=== PATIENT | male | born 1975 | race Two or more races ===

== ENCOUNTER 2024-09-28 18:33 | Emergency (ER) | payer MEDICAID, SELFPAY ==
[2024-09-28 18:36] VITALS: BMI 31.1
[2024-09-28 19:19] VITALS: BP 175/93; PULSE 81; RESP 17; TEMP 36.9; O2SAT 96
--- NOTE | 2024-09-28 19:20 | EKG_ITS ---
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
--- NOTE | 2024-09-28 19:20 | PD.EDRME ---
Rapid Medical Screening Exam RME Arrival date/time: 09/28/24 18:33 49 yo m present to Ed for c/o of dizziness, headache for 3 days I have greeted and performed a focused initial assessment of this patient. A comprehensive ED assessment and evaluation of the patient, analysis of all test results, and completion of the medical decision making process will be conducted by additional ED providers. Chief Complaint: Headache Time Seen by Provider: 09/28/24 19:13
[2024-09-28 20:13] LABS: Basophils # (Auto) 0.1 Thou/mm3 (0.0-0.2); Basophils % (Auto) 1 % (0-2.5); Eosinophils # (Auto) 0.1 Thou/mm3 (0.0-0.5); Eosinophils % (Auto) 1 % (0-10); Hematocrit 40.7 % (41.0-53.0); Hemoglobin 14.7 g/dL (13.5-16.0); Immature Granulocytes % (Auto) 0 % (0-0); Immature Granulocytes Auto 0.04 Thou/mm3 (0.00-0.00); Lymphocytes # (Auto) 2.9 Thou/mm3 (1.0-4.8); Lymphocytes % (Auto) 24 % (10-50); Mean Corpuscular HGB Conc 36.1 g/dl (31.0-37.0); Mean Corpuscular Volume 89 fL (80-100); Monocytes # (Auto) 1.3 Thou/mm3 (0.0-0.8); Monocytes % (Auto) 10 % (0-12); Neutrophils % (Auto) 65 % (37-80); Nucleated Red Blood Cell % 0 /100 WBC (0); Platelet Count 284 Thou/mm3 (140-440); RDW Standard Deviation 39.8 fL (35.1-43.9); White Blood Count 12.4 Thou/mm3 (3.8-10.6)
[2024-09-28 20:38] LABS: Amphetamine/Methamp Scrn,U Negative (Negative); Barbiturate Screen,Urine Negative (Negative); Benzodiazepines Screen,Urine Negative (Negative); Benzoylecgonine Screen, Ur Negative (Negative); Fentanyl Screen,Urine Negative (Negative); Opiate Screen,Urine Negative (Negative); THC Screen,Urine Negative (Negative)
[2024-09-28 20:56] LABS: Alanine Aminotransferase 45 U/L (10-49); Albumin, Serum 4.7 gm/dL (3.5-5.0); Albumin/Globulin Ratio 1.7 (1.2-2.2); Alcohol, Blood Medical < 3.0 mg/dL (0-10.0); Alkaline Phosphatase 101 U/L (46-116); Aspartate Amino Transferase 53 U/L (0-34); BUN/Creatinine Ratio 7 Ratio (12-20); Blood Urea Nitrogen 5 mg/dL (9-23); Calcium 9.5 mg/dL (8.3-10.6); Calcium (Corrected) 9.5 mg/dL (8.5-10.1); Carbon Dioxide 29.5 mMol/L (20.0-31.0); Creatinine (Component) 0.7 mg/dL (0.6-1.3); Estimated Creatinine Clearance 149.5 mL/min (>60); Globulin 2.8 gm/dL (2.3-3.5); Glucose 119 mg/dL (74-106); Lipase 27 U/L (12-53); Magnesium 2.3 mg/dL (1.6-2.6); Total Protein 7.5 gm/dL (5.7-8.2); Troponin I < 0.020 ng/mL (0.0-0.045); eGFR > 60 See Note
[2024-09-28 21:05] LABS: Anion Gap 9 (7-16); Chloride 96 mMol/L (98-107); Osmolality,Calculated 266 (275-295); Potassium 3.1 mMol/L (3.4-5.1); Sodium 134 mMol/L (136-145)
[2024-09-28] MEDS: SODIUM CHLORIDE 0.9% 1000 ML 1,000 ML 999 ML IV (21:25)
[2024-09-28] MEDS: ACETAMINOPHEN 500 MG TABLET 1000 MG PO (21:25)
[2024-09-28] MEDS: LORazepam 0.5 MG TABLET 1 MG PO (21:26)
[2024-09-28] MEDS: ONDANSETRON ODT 4 MG TABRAP PO (21:26)
[2024-09-28] MEDS: POTASSIUM CHLORIDE 20 mEq TABCR 40 MEQ PO (22:32)
--- NOTE | 2024-09-28 23:35 | EDNOTE_ITS ---
ED Headache RME/HPI General Chief Complaint: Headache Stated Complaint: HEADACHE AND DIZZINESS FOR 3 DAYS Time Seen by Provider: 09/28/24 19:13 Arrival date/time: 09/28/24 18:33 49 year old male present to emergency room with c/o of headache and dizziness for 3 days. pt report stop drinking alcohol 3 days ago. pt denies any si, hallucination or homicidal thoughts. LOCATION: generalized and diffuse headache SEVERITY: Symptoms are described as being severe with limitations on activities of daily living QUALITY: Symptoms are described as being dull or achy CONTEXT: The patient is unable to identify any inciting events. DURATION/TIMING: The symptoms started approximately 3 day ago and have been constant since then and have been progressive getting worse. ASSOCIATED SYMPTOMS: The patient is unable to identify any other associated symptoms. MODIFYING FACTORS: The patient is unable to identify any alleviating or aggravating symptoms. PERTINENT ROS: Headache is gradual in onset, not maximal intensity at onset, not associated with syncope or presyncope, not the first or the worst, not associated with head trauma or anticoagulant use, no associated focal neurological deficits, denies associated neck pain, no recent fevers, no unexplained rashes, no recent foreign travel, immunized, no unexplained nausea or vomiting. REVIEW OF SYSTEMS: See History of Present Illness - with the exception of those mentioned in the history of present illness, all other systems reviewed and reported as negative GENERAL: In general the patient is awake, interactive, in an emergency department gurney. HEAD/EYES/EARS/NOSE/THROAT: normo-cephalic, atraumatic, mucus membranes are moist, anicteric, palpebral conjunctiva is pink, trachea is midline. CARDIOVASCULAR: regular rate and regular rhythm, no murmurs, heart sounds are not distant, strong pulses in all four extremities that are equal and symmetric bilateral upper and lower extremities, normal capillary refill. CHEST/PULMONARY: normal chest rise and fall, good air movement, clear to auscultation bilaterally, normal inspiratory to expiratory ratios without evidence of respiratory distress. NECK: No midline/Paraspinal tenderness, no step off ROM/Strenght intact No Kernig and bruzinski sign. No trauma ABDOMEN: soft, not tender, no masses appreciated BACK: normal range of motion without pain. NEUROLOGICAL: cranio-facial features are symmetric, moves all four extremities equally without obvious limitations or weakness. EXTREMITY: no tenderness to palpation over the long bones or large joints of the bilateral upper and lower extremities, no joint swelling, no joint erythema, no signs of trauma, no unilateral leg swelling and no peripheral edema. SKIN: warm, dry, well-perfused, no jaundice, no rash, no telangiectasias or petechia. PSYCH: calm, cooperative, no evidence of psychosis or agitation RME / HPI RME / HPI Narrative: 09/28/24 18:33 49 yo m present to Ed for c/o of dizziness, headache for 3 days I have greeted and performed a focused initial assessment of this patient. A comprehensive ED assessment and evaluation of the patient, analysis of all test results, and completion of the medical decision making process will be conducted by additional ED providers. Related Data Allergies Allergy/AdvReac Type Severity Reaction Status Date / Time No Known Allergies Allergy Verified 09/28/24 18:35 Course Course Course Narrative: Patient is admitted to the Emergency Department and evaluated. Patient appears well, is non-toxic and well hydrated. Pt. has no fever or nuchal rigidity. No signs of meningitis. HAMLIN is not sudden onset. This is not the worse HAMLIN of patient's life. No neurological deficits. I do not suspect SAH. most likely sx are withdrawal from not drinking alcohol. Quality Measures none Orders Category Date Time Status Bedside Influenza A&B Antigen Test NOW Care 09/28/24 19:20 Completed EKG (ED ONLY) *Do not use* NOW Care 09/28/24 19:20 Completed Insert IV STAT Care 09/28/24 19:27 Active EKG (ED Only) Stat Exams 09/28/24 19:20 Draft Alcohol, Blood Medical Stat Lab 09/28/24 20:04 Completed CBC Stat Lab 09/28/24 20:04 Completed CMP [Comprehensive Metabolic Panel] Stat Lab 09/28/24 20:04 Completed Drug Screen,Urine Stat Lab 09/28/24 20:24 Completed Lipase Stat Lab 09/28/24 20:04 Completed Magnesium Stat Lab 09/28/24 20:04 Completed Troponin I Stat Lab 09/28/24 20:04 Completed Acetaminophen Tab [Tylenol ES Tab] Med 09/28/24 19:20 Discontinued 1,000 mg PO X1 ONE LORazepam [Ativan] Med 09/28/24 19:27 Discontinued 1 mg PO X1 ONE Ondansetron Odt [Zofran Odt] Med 09/28/24 19:28 Discontinued 4 mg PO X1 ONE Potassium Chloride [K-Dur] Med 09/28/24 21:29 Discontinued 40 meq PO X1 ONE Sodium Chloride 0.9% 1000 ml [Ns] 1,000 ml Med 09/28/24 19:27 Discontinued IV 999 mls/hr Reevaluation(s) Reevaluation #1: pt is feeling better and would like to go. Vital Signs Vital signs: Vital Signs Temperature 98.4 F 09/28/24 19:19 Pulse Rate 81 09/28/24 19:19 Respiratory Rate 17 09/28/24 19:19 Blood Pressure 175/93 H 09/28/24 19:19 Pulse Oximetry (%) 96 09/28/24 19:19 Oxygen Delivery Method Room Air 09/28/24 19:19 Procedures -ED EKG Interpretation #1: Date of EK09/28/24 Rate: 81 Interpretation: Reviewed by me EKG Impression: Normal sinus rhythm, No acute ST-T changes, No ectopy, No ischemic changes, Normal QRS and Normal intervals Headache Patient data External records reviewed:: [facility] previous records Clinical information provided by:: patient Social determinants that could affect healthcare access:: alcohol use Patient has the following chronic illnesses:: alcohol use How is presenting disease/condition affected by chronic disease/condition?: exacerbated by Evaluation data The following diagnostics were reviewed and interpreted by me:: lab results, radiology exam(s) and EKG tracing(s) Lab and/or radiology exams considered but not ordered:: n/a Interpretation Summary: K 3.1 alcohol/drug negative cbc/cmp wnl exception for what is mention trop negative mg wnl flu negative Medications / Prescriptions Medications or Prescriptions considered but not ordered:: n/a Medication administrations:: Medication Administration History Discontinued Medications Acetaminophen (Acetaminophen 500 Mg Tablet) 1,000 mg PO X1 ONE Stop: 09/28/24 19:21 Last Admin: 09/28/24 21:25 Dose: 1,000 mg Documented By: RUDOLPH Sodium Chloride (Ns) 1,000 mls @ 999 mls/hr IV .Q1H1M ONE Stop: 09/28/24 20:27 Last Infusion: 09/28/24 22:34 Dose: Infused Documented By: Admin: 09/28/24 21:25 Dose: 999 mls/hr Documented By: RUDOLPH Lorazepam (Lorazepam 0.5 Mg Tablet) 1 mg PO X1 ONE Stop: 09/28/24 19:28 Last Admin: 09/28/24 21:26 Dose: 1 mg Documented By: EE Ondansetron HCl (Ondansetron Odt 4 Mg Tabrap) 4 mg PO X1 ONE; Protocol Stop: 09/28/24 19:29 Last Admin: 09/28/24 21:26 Dose: 4 mg Documented By: EE Potassium Chloride (Potassium Chloride 20 Meq Tabcr) 40 meq PO X1 ONE Stop: 09/28/24 21:30 Last Admin: 09/28/24 22:32 Dose: 40 meq Documented By: KF as stated above Consultations Consultation(s) initiated? (list below): No Diagnosis Differential diagnosis headache: migraine, tension headache, headache and other (alcohol withdrawal, dehydration, electrolyte imbalance ) Most likely diagnosis given after review of the tests above:: headache, alcohol withdrawal Admission Indicated Admission indicated?: not indicated Explain why admission is indicated or not indicated:: n/a Admission Request Was there a request for admission?: No Disposition Plan Disposition Plan: Discharge Discharge Attestation Discharge Attestation: The patient and all family members were given an opportunity to ask questions and understood the discharge instructions. Discharge instructions specifically effects, indications for sooner follow up or return to the emergency department, and the expected course of current diagnosis. Patient condition: Stable Discharge Plan Plan Patient Disposition: HOME (Self Care) Health Concerns: Follow with PMD as directed Take tylenol or motrin as need Return to ED if sx worsen Prescriptions/Referrals Referrals: No Primary/Family,Physician [Primary Care Provider] - In 1 week Problem List Clinical Impression: Headache, Hypokalemia, Alcohol withdrawal Patient/Caregiver Discharge Instructions Education Materials: Self-Care for Headaches Print Language: Argentine Stand Alone Forms: [employer] Award Info., Patient Portal Info Letter
== END 2024-09-28 23:39 | disposition home or self-care (01) ==
PROVIDERS: Physician Assistant; Emergency Provider Emergency Medicine
DX: R51.9 Headache, unspecified (principal); E87.6 Hypokalemia; F10.939 Alcohol use, unspecified with withdrawal, unspecified
CPT/HCPCS: 36415; 80053; 80307; 80320; 83690; 83735; 84484; 85025; 87400; 93005; 96360; 99284; J7030; Q0162; A9270; G0480

== ENCOUNTER 2024-10-04 22:06 | Emergency (ER) | payer MEDICAID, SELFPAY ==
[2024-10-04 22:06] VITALS: BMI 27.1
[2024-10-04 22:19] VITALS: BP 158/108; BP 170/100; PULSE 77; RESP 20; TEMP 37.4; O2SAT 95
--- NOTE | 2024-10-04 22:21 | EKG_ITS ---
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
--- NOTE | 2024-10-04 22:42 | XR_ITS ---
Examination: CT brain head without contrast. 2-D sagittal coronal reconstructions Date and time of exam:October 07, 2024 1105 hrs. Indications: Altered mental status confusion beginning one week ago CTDI: vol (mGy):54.5 DLP: (mGycm):1123 Technique: Multiple CT axial sections of the brain have been obtained, 5 mm slice thickness. Contrast has not been administered. 2-D sagittal, coronal reconstructions have been obtained Low dose protocols were performed. One or more of the following dose reduction techniques were used; automated exposure control, adjustment of the mA and/or KV according to patient size, use of iterative reconstruction technique. Findings: Large area of edema in the left posterior parietal lobe Frontal horns are shifted to the right 5 mm No acute hemorrhage Cranial vault intact No cranial vault fracture Impression: Large area of edema in the posterior left parietal lobe suspicious for brain neoplasm Recommend MRI brain follow-up pre and postcontrast
--- NOTE | 2024-10-04 22:43 | PD.EDRME ---
Rapid Medical Screening Exam [facility] Arrival date/time: 10/04/24 22:06 49M with history of alcohol use presents to ED with 1 week of HAMLIN and confusion. Patient was here during initial onset here, felt better after meds, but symptoms returned. Chief Complaint: Altered Mental Status Vital signs: Vital Signs Temperature 99.4 F 10/04/24 22:19 Pulse Rate 77 10/04/24 22:19 Respiratory Rate 20 10/04/24 22:19 Blood Pressure 170/100 H 10/04/24 22:19 Pulse Oximetry (%) 95 10/04/24 22:19 Oxygen Delivery Method Room Air 10/04/24 22:19
[2024-10-04 23:03] LABS: Basophils # (Auto) 0.1 Thou/mm3 (0.0-0.2); Basophils % (Auto) 1 % (0-2.5); Eosinophils # (Auto) 0.2 Thou/mm3 (0.0-0.5); Eosinophils % (Auto) 1 % (0-10); Hemoglobin 14.1 g/dL (13.5-16.0); Immature Granulocytes % (Auto) 0 % (0-0); Immature Granulocytes Auto 0.04 Thou/mm3 (0.00-0.00); Lymphocytes # (Auto) 2.9 Thou/mm3 (1.0-4.8); Lymphocytes % (Auto) 23 % (10-50); Mean Corpuscular HGB Conc 35.3 g/dl (31.0-37.0); Mean Corpuscular Hemoglobin 32.7 pg (25.0-35.0); Mean Corpuscular Volume 93 fL (80-100); Monocytes # (Auto) 1.2 Thou/mm3 (0.0-0.8); Monocytes % (Auto) 10 % (0-12); Neutrophils # (Auto) 8.3 Thou/mm3 (1.8-7.7); Neutrophils % (Auto) 66 % (37-80); Nucleated Red Blood Cell % 0 /100 WBC (0); Platelet Count 269 Thou/mm3 (140-440); RDW Standard Deviation 42.6 fL (35.1-43.9); Red Blood Count 4.31 Miln/mm3 (4.50-5.90); White Blood Count 12.7 Thou/mm3 (3.8-10.6)
[2024-10-04 23:19] LABS: Collection Type, Urine Clean Catch
[2024-10-04 23:25] LABS: Alanine Aminotransferase 42 U/L (10-49); Albumin, Serum 4.3 gm/dL (3.5-5.0); Albumin/Globulin Ratio 1.5 (1.2-2.2); Alcohol, Blood Medical < 3.0 mg/dL (0-10.0); Alkaline Phosphatase 90 U/L (46-116); Ammonia < 10 uMol/L (11-32); Anion Gap 7 (7-16); Aspartate Amino Transferase 31 U/L (0-34); BUN/Creatinine Ratio 14 Ratio (12-20); Bilirubin,Total 0.4 mg/dL (0.3-1.2); Blood Urea Nitrogen 11 mg/dL (9-23); Calcium 9.1 mg/dL (8.3-10.6); Calcium (Corrected) 9.1 mg/dL (8.5-10.1); Carbon Dioxide 28.5 mMol/L (20.0-31.0); Chloride 102 mMol/L (98-107); Creatinine (Component) 0.8 mg/dL (0.6-1.3); Estimated Creatinine Clearance 121.3 mL/min (>60); Globulin 2.8 gm/dL (2.3-3.5); Glucose 134 mg/dL (74-106); Magnesium 2.5 mg/dL (1.6-2.6); Osmolality,Calculated 275 (275-295); Potassium 3.4 mMol/L (3.4-5.1); Sodium 137 mMol/L (136-145); Total Protein 7.1 gm/dL (5.7-8.2); eGFR > 60 See Note
[2024-10-04 23:26] LABS: Bilirubin,Urine Negative (Negative); Blood,Urine Trace (Negative); Clarity,Urine Clear (Clear/Hazy); Color,Urine Yellow (Lt Yel-Yel); Culture Indicated,Urine Not Indicated; Glucose, Urine Negative (Negative); Ketones,Urine Negative (Negative); Leukocyte Esterase,Urine Negative (Negative); Nitrite,Urine Negative (Negative); Protein,Urine Negative (Neg - Trace); RBC,Urine < 1 /hpf (0-3); Specific Gravity,Urine 1.012 (1.001-1.035); Squamous Epithelial Cell,Urine < 1 /hpf (0-5); Urobilinogen,Urine Negative mg/dL (0.0-1.0); WBC,Urine 1 /hpf (0-5)
[2024-10-05] VITALS (9 sets, daily range): BP systolic 118–171; BP diastolic 71–92; PULSE 56–80; RESP 17–20; TEMP 36.6–37.3; O2SAT 97–100
--- NOTE | 2024-10-05 00:22 | XR_ITS ---
Examination: AP chest single view Technique one AP portable upright chest single view Exam date and time: October 04, 2024, 11:29 PM Indications: Coughing today. Findings: Normal heart size. Lungs are clear. The osseous structures are intact. Impression: No active disease
--- NOTE | 2024-10-05 00:23 | PD.EDAMS ---
Altered Mental Status RME/HPI General Chief Complaint: Altered Mental Status Stated Complaint: AMS Source: family Arrival date/time: 10/04/24 22:06 Mode of arrival: ambulatory Limitations: no limitations RME / HPI RME / HPI narrative: 10/04/24 22:06 49M with history of alcohol use presents to ED with 1 week of HAMLIN and confusion. Patient was here during initial onset here, felt better after meds, but symptoms returned. Dr. Crocker?s Main ED Evaluation: Patient seen by me at 00:23. 49-year-old male alcoholic brought to the emergency department by brother with chief complaint of confusion. Patient quit drinking about a week ago. He is usually a very heavy drinker of beer. He has been having problems with relationships and apparently has been drinking more than normal. He quit about a week ago and ended up coming to the emergency department. Patient was evaluated and discharged from this emergency department. He also went to [place] per brother, and had blood drawn. Those tests are supposed to be resulted on Sunday but he felt sick and decided to come here. Brother states that the patient has a very wide-based and odd gait and he has been very confused at home. It has been 7 days since his last drink. Patient is confused but able to answer most questions. He is able to contribute some to the history. Related Data Allergies Allergy/AdvReac Type Severity Reaction Status Date / Time No Known Allergies Allergy Verified 09/28/24 18:35 Review of Systems Review of Systems ROS Unobtainable: unobtainable due to mental status Past Medical History Social History SMOKING STATUS: Never smoker ED Exam Narrative Physical exam: GENERAL APPEARANCE: alert and oriented self and he knows he is in an ER, well-developed, well-nourished, no acute distress VITALS: All vitals were reviewed and the pulse ox is % on room air, which is normal according to my interpretation. HEENT: Normocephalic, atraumatic; pupils equal, round, reactive to light; EOMI; mucous membranes pink, moist; oropharynx clear. He has bilateral horizontal nystagmus. NECK: Supple LUNGS: CTABL; no wheezes, no rales, no rhonchi HEART: Regular rate, regular rhythm; normal S1, S2; no murmurs ABDOMEN: non distended; normal BS; soft, no tenderness, no guarding, no rebound; no masses, no organomegaly, no hernia BACK: no CVA tenderness EXTREMITIES: atraumatic; no edema NEUROLOGIC: awake; alert and oriented x4; cranial nerves II-XII grossly intact; no focal sensory or motor deficits. Patient has a wide-based gait. PSYCHIATRIC: appropriate mood and affect SKIN: warm, dry, normal color; no rashes General Limitations: Present no limitations Course Course Course Narrative: CXR is ordered for determining etiology of cough. Quality Measures none Orders Category Date Time Status Bedside Blood Glucose NOW Care 10/05/24 00:19 Active Bedside COVID-19 Antigen Test NOW Care 10/05/24 00:31 Active Bedside Influenza A&B Antigen Test NOW Care 10/05/24 00:31 Completed Blood glucose [Bedside Blood Glucose] NOW Care 10/04/24 22:21 Active Environmental Planning Engineer NOW Care 10/05/24 00:19 Active Continuous Pulse Oximetry NOW Care 10/05/24 00:19 Completed EKG (ED ONLY) *Do not use* NOW Care 10/04/24 22:21 Completed Insert IV NOW Care 10/04/24 22:42 Active Insert IV NOW Care 10/05/24 00:19 Active MRI Screening NOW Care 10/05/24 01:[address] head/brain wo con Stat Exams 10/04/24 22:42 Completed EKG (ED Only) Stat Exams 10/04/24 22:21 Draft MR head/brain wo/w con Stat Exams 10/05/24 Ordered XR chest 1V portable Stat Exams 10/05/24 00:22 Taken Alcohol, Blood Medical Stat Lab 10/04/24 22:53 Completed Ammonia Stat Lab 10/04/24 22:53 Completed CBC Stat Lab 10/04/24 22:53 Completed CMP [Comprehensive Metabolic Panel] Stat Lab 10/04/24 22:53 Completed Drug Screen,Urine Stat Lab 10/04/24 23:05 Completed Magnesium Stat Lab 10/04/24 22:53 Completed Partial Thromboplastin Time Stat Lab 10/05/24 00:20 Completed Prothrombin Time with INR Stat Lab 10/05/24 00:20 Completed Thyroid Stimulating Hormone Stat Lab 10/05/24 00:20 Completed Troponin I Stat Lab 10/05/24 00:20 Completed Urinalysis, C/S if Indicated Stat Lab 10/04/24 23:05 Completed DiphenhydrAMINE INJ [Benadryl Inj] Med 10/05/24 05:14 Discontinued 12.5 mg IVP X1 ONE Folic Acid Inj Med 10/05/24 00:21 Discontinued 1 mg IVP X1 ONE Ketorolac Inj [Toradol Inj] Med 10/05/24 05:14 Discontinued 15 mg IVP X1 ONE LORazepam [Ativan Inj] Med 10/05/24 00:23 Discontinued 2 mg IVP X1 ONE Metoclopramide Inj [Reglan Inj] Med 10/05/24 05:14 Discontinued 5 mg IVP X1 ONE Sodium Chloride 0.9% 1000 ml [Ns] 1,000 ml Med 10/05/24 00:27 Discontinued IV 999 mls/hr Thiamine Inj [Vitamin B-1 Inj] Med 10/05/24 00:21 Discontinued 100 mg IVP X1 ONE Thiamine Inj [Vitamin B-1 Inj] Med 10/05/24 00:47 Discontinued 400 mg IVP X1 ONE Vital Signs Vital signs: Vital Signs Temperature 99.4 F 10/04/24 22:19 Pulse Rate 77 10/04/24 22:19 Respiratory Rate 20 10/04/24 22:19 Blood Pressure 170/100 H 10/04/24 22:19 Pulse Oximetry (%) 95 10/04/24 22:19 Oxygen Delivery Method Room Air 10/04/24 22:19 Altered Mental Status MDM Narrative MDM Narrative:: This patient has Warnicke's encephalopathy. I have ordered a workup and also Ativan, thiamine, normal saline, folic acid. Patient's get any large dose thiamine over the coming days. Will need to admit him. EKG taken on 10/04/24 at 22:33, personally interpreted by me shows normal sinus rhythm at 75. Normal axis, no ectopy. No signs of acute ischemia. CT head is being read as showing possible mass. Patient is going to be held in the ER till the morning for MRI. Case d/w Dr Grant at 00:48. He will see the pt. 0600 Care signed out to Dr. Ricardo. Past medical, surgical, social and family history reviewed. Vitals and home medications reviewed. Results and treatment plan discussed. They will assume the care of the patient at this time and will follow the patient, pending MRI and final dispo. Please refer to the emergency department record for history and examination from initial visit. The following addendum documentation note is intended to reflect any pending information, findings, or radiology results not included in the patient?s initial chart. Patient data External records reviewed:: [facility] previous records Clinical information provided by:: family Social determinants that could affect healthcare access:: none Patient has the following chronic illnesses:: see PMH How is presenting disease/condition affected by chronic disease/condition?: uneffected by Evaluation data The following diagnostics were reviewed and interpreted by me:: lab results, radiology exam(s) and EKG tracing(s) Lab and/or radiology exams considered but not ordered:: na Interpretation Summary: Examination: CT brain head without contrast. Date and time of exam:October 07, 2024 1105 hrs. Indications: Altered mental status confusion beginning one week ago Findings: Large area of edema in the left posterior parietal lobe Frontal horns are shifted to the right 5 mm No acute hemorrhage Cranial vault intact No cranial vault fracture Impression: Large area of edema in the posterior left parietal lobe suspicious for brain neoplasm Recommend MRI brain follow-up pre and postcontrast Dictated By: Jayson Acevedo MD Medications / Prescriptions Medications or Prescriptions considered but not ordered:: na Medication administrations:: Medication Administration History Discontinued Medications Diphenhydramine HCl (Diphenhydramine Inj 50 Mg/Ml Vial) 12.5 mg IVP X1 ONE Stop: 10/05/24 05:15 Last Admin: 10/05/24 05:24 Dose: 12.5 mg Documented By: GRACE Comments: [id number] Folic Acid (Folic Acid Inj 1 Mg/0.2 Ml) 1 mg IVP X1 ONE Stop: 10/05/24 00:22 Last Admin: 10/05/24 00:43 Dose: 1 mg Documented By: GRACE Sodium Chloride (Ns) 1,000 mls @ 999 mls/hr IV .Q1H1M ONE Stop: 10/05/24 01:27 Last Infusion: 10/05/24 01:38 Dose: Infused Documented By: Admin: 10/05/24 00:37 Dose: 999 mls/hr Documented By: GRACE Ketorolac Tromethamine (Ketorolac Inj 30 Mg/Ml Vial) 15 mg IVP X1 ONE Stop: 10/05/24 05:15 Last Admin: 10/05/24 05:27 Dose: 15 mg Documented By: GRACE Lorazepam (Lorazepam 2 Mg/Ml Vial) 2 mg IVP X1 ONE Stop: 10/05/24 00:24 Last Admin: 10/05/24 00:38 Dose: 2 mg Documented By: GRACE Metoclopramide HCl (Metoclopramide Inj 5 Mg/Ml Vial 2 Ml) 5 mg IVP X1 ONE; Protocol Stop: 10/05/24 05:15 Last Admin: 10/05/24 05:29 Dose: 5 mg Documented By: GRACE Thiamine HCl (Thiamine Inj 100 Mg/Ml Vial 2 Ml) 100 mg IVP X1 ONE Stop: 10/05/24 00:22 Last Admin: 10/05/24 00:41 Dose: 100 mg Documented By: GRACE Thiamine HCl (Thiamine Inj 100 Mg/Ml Vial 2 Ml) 400 mg IVP X1 ONE Stop: 10/05/24 00:48 Last Admin: 10/05/24 02:00 Dose: 400 mg Documented By: GRACE as above, if any Consultations Consultation(s) initiated? (list below): Yes Consultation #1 (Physician, Specialty, Details): see narrative Diagnosis Differential diagnosis altered mental status: altered mental status Most likely diagnosis given after review of the tests above:: pending work-up Admission Indicated Admission indicated?: indicated Admission Request Was there a request for admission?: Yes Admission Attestation Admission request attestation: Discussed case with [] from Hospitalist service regarding admission. Discussed patients ED course, exam findings, labs, and radiology results. The Hospitalist [agrees,declines] to accept the patient for admission. Disposition Plan Disposition Plan: other (specify) (signout pending MRI) Discharge Plan Prescriptions/Referrals Referrals: No Primary/Family,Physician [Primary Care Provider] - In 1 week Problem List Clinical Impression: Wernicke encephalopathy, Acute alteration in mental status Patient/Caregiver Discharge Instructions Print Language: Romansh
--- NOTE | 2024-10-05 00:25 | PC.NURSE ---
Pt brought to RM #3 via w/c. Pt confused, Dr. Crocker at bedside seeing pt. Brother at bedside. Pt seen in Ed 2 days ago with same c/o.
[2024-10-05] MEDS: SODIUM CHLORIDE 0.9% 1000 ML 1,000 ML 999 ML IV (00:37)
[2024-10-05] MEDS: LORazepam 2 MG/ML VIAL IVP (00:38)
[2024-10-05] MEDS: THIAMINE INJ 100 MG/ML VIAL 2 ML IVP (00:41)
[2024-10-05] MEDS: FOLIC ACID INJ 1 MG/0.2 ML IVP (00:43)
[2024-10-05 00:48] LABS: Thyroid Stimulating Hormone 1.63 uIU/mL (0.55-4.78); Troponin I < 0.002 ng/mL (0.0-0.045)
[2024-10-05] MEDS: THIAMINE INJ 100 MG/ML VIAL 2 ML 400 MG IVP (02:00)
[2024-10-05 02:04] LABS: Amphetamine/Methamp Scrn,U Negative (Negative); Barbiturate Screen,Urine Negative (Negative); Benzodiazepines Screen,Urine Negative (Negative); Benzoylecgonine Screen, Ur Negative (Negative); Fentanyl Screen,Urine Negative (Negative); Opiate Screen,Urine Negative (Negative); THC Screen,Urine Negative (Negative)
--- NOTE | 2024-10-05 02:15 | EVENTNT_ITS ---
<Statement entered by Ever Hall MD - 10/07/24 23:03> 49-year-old male with history of alcohol use disorder who presented to the ER with chief complaint of headache and confusion. In the ER, patient underwent CT head with findings of large area of edema in the posterior left parietal lobe suspicious for brain neoplasm causing 5 mm midline shift and thus discussed case with emergency physician regarding the patient needing transfer for tertiary care center for emergent neurosurgical consultation. I reviewed above note and agree with findings and plans. I have also personally examined the patient with medicine team and went over assessment and plan with medical team including technology development intern and resident physician. Documentation for date of: 10/05/24 Event Note Event Note: We recieved a call from the ED physican Dr Crocker regarding possible admission for the patient, however upon review the patient chart, We noticed that patient has Lt sided brain lesion with tata edema and mid-line shift 5mm, We informed the ED team including Dr Crocker that the patient need to be transferred to a higher level of care for stat neurosurgical consultation. - Patient's plan and care discussed with my attending, Dr. Isabel Snell MD Internal Medicine PGY-2
[2024-10-05 02:31] LABS: Partial Thromboplastin Time 29.3 Seconds (22.0-36.0); Prothrombin Time 11.2 Seconds (9.0-12.2)
[2024-10-05] MEDS: DiphenhydrAMINE INJ 50 MG/ML VIAL 12.5 MG IVP (05:24)
[2024-10-05] MEDS: KETOROLAC INJ 30 MG/ML VIAL 15 MG IVP (05:27)
[2024-10-05] MEDS: METOCLOPRAMIDE INJ 5 MG/ML VIAL 2 ML IVP (05:29)
--- NOTE | 2024-10-05 06:01 | PD.EDADDENDU ---
Emergency Room Addendum <Lizeth Silva - Last Filed: 10/05/24 12:42> Addendum Narrative: 0600: Care assumed from Dr. Crocker, the previous shift emergency physician. Past medical, surgical, social and family history reviewed. Vitals and home medications reviewed. I will assume the care of the patient at this time, pending MRI and final disposition. Please refer to the emergency department record for history and examination from initial visit.? The following addendum documentation note is intended to reflect any pending information, findings, or radiology results not included in the patient?s initial chart. TIME: 0700. Patient re-evaluated. Patient reports that headache is slightly better than arrival. The patient is alert and oriented to person, place, time, and situation. Patient still has bilateral horizontal nystagmus. He is able to stand to urinate at the bedside in the urinal. Patient is moving all extremities, motor strength is 5 out of 5, normal tone. Sensation is intact to light touch bilaterally. Approximately 1000: Transfer was initiated for MRI, and although we do have neurology here we do not have MRI on Sundays. Review of the chart shows that the patient was given thiamine, folate, IV fluids, and head CT that showed large area of edema in the posterior left parietal lobe suspicious for brain neoplasm. 1100: Discussed with Dr. Abad, neurology on-call from [facility] who accepts the patient for ED to ED transfer. In summary: patient is medical record is reviewed. This 49-year-old male has a history of heavy drinking (beers), who quit drinking 7 days ago. Per the patient's brother the patient was seen here on September 28, 2024 for dizziness and headache and at that time reported that he was having dizziness and headache for over 3 weeks. He then was seen at [facility] emergency department and discharged. No seizure activity while in the emergency department. All labs from 2300 on 10/05/23: white blood cell count is 12. Hemoglobin is 14/40. Platelets are 269. Good good good PT 11, INR 1.0, PTT 29. Sodium is 137, potassium is 3.4, chloride is 102, CO2 is 28. Anion gap is 7, BUN/creatinine is 11/1.8. Glucose is 134. Lactate elevated? Possibly secondary to metformin unclear etiology, however white count is 15 and therefore sepsis workup is obtained. CT head and chest abdomen pelvis are reassuring the patient has not of a PE and/or pneumonia. No intra-abdominal acute findings. Normal liver function test, ammonia is less than 10. Troponin x 1 is negative TSH is 1.63. Otherwise urinalysis does not show evidence of infection, no bacteria, nitrates, or leukocytes. Alcohol 3.0 mg/dl. Influenza AMB are negative. Chest x-ray did not show infiltrate. Again please refer to Dr. Crocker's chart. CT scan from 2353:CT head there is a mass and pending MRI. (Large area of edema in the posterior left parietal lobe suspicious for brain) neoplasm Dictated By:Jayson Acevedo MD Signed By: 10/04/24 430 Please see nurses notes for all additional meds given but the patient was given 500 mg of thiamine and 1 g of folic acid. Given the history, physical exam, and review of laboratory and imaging studies the patient is determined to be unsafe for discharge and requires higher level of care. For this reason the patient is being transferred to [facility]] for further diagnostic tests, treatments, stabilization, and monitored response to therapy. I communicated the history, physical exam, pertinent laboratory and imaging studies to the accepting physician. Electronic copies of all emergency department laboratory testing and imaging studies as well as medications ordered and administered are being sent with the patient. Patient is Stable for Transfer. Reason: Neurology evaluation r/o Wiernicke's encephalopathy, abnormal CT scan Services needed: MRI. Risks Benefits have been explained-patient accepts transfer. <Viki Ricardo MD - Last Filed: 10/05/24 12:41> Addendum Narrative: 0600: Care assumed from Dr. Crocker, the previous shift emergency physician. Past medical, surgical, social and family history reviewed. Vitals and home medications reviewed. I will assume the care of the patient at this time, pending MRI and final disposition. Please refer to the emergency department record for history and examination from initial visit.? The following addendum documentation note is intended to reflect any pending information, findings, or radiology results not included in the patient?s initial chart. TIME: 0700. Patient re-evaluated. Patient reports that headache is slightly better than arrival. The patient is alert and oriented to person, place, time, and situation. Patient still has bilateral horizontal nystagmus. He is able to stand to urinate at the bedside in the urinal. Patient is moving all extremities, motor strength is 5 out of 5, normal tone. Sensation is intact to light touch bilaterally. Approximately 1000: Transfer was initiated for MRI, and although we do have neurology here we do not have MRI on Sundays. Review of the chart shows that the patient was given thiamine, folate, IV fluids, and head CT that showed large area of edema in the posterior left parietal lobe suspicious for brain neoplasm. 1100: Discussed with Dr. Abad, neurology on-call from [facility] who accepts the patient for ED to ED transfer. In summary: patient is medical record is reviewed. This 49-year-old male has a history of heavy drinking (beers), who quit drinking 7 days ago. Per the patient's brother the patient was seen here on September 28, 2024 for dizziness and headache and at that time reported that he was having dizziness and headache for over 3 weeks. He then was seen at [facility] emergency department and discharged. No seizure activity while in the emergency department. All labs from 2300 on 10/05/23: white blood cell count is 12. Hemoglobin is 14/40. Platelets are 269. Good good good PT 11, INR 1.0, PTT 29. Sodium is 137, potassium is 3.4, chloride is 102, CO2 is 28. Anion gap is 7, BUN/creatinine is 11/1.8. Glucose is 134. Lactate elevated? Possibly secondary to metformin unclear etiology, however white count is 15 and therefore sepsis workup is obtained. CT head and chest abdomen pelvis are reassuring the patient has not of a PE and/or pneumonia. No intra-abdominal acute findings. Normal liver function test, ammonia is less than 10. Troponin x 1 is negative TSH is 1.63. Otherwise urinalysis does not show evidence of infection, no bacteria, nitrates, or leukocytes. Alcohol 3.0 mg/dl. Influenza AMB are negative. Chest x-ray did not show infiltrate. Again please refer to Dr. Crocker's chart. CT scan from 2353:CT head there is a mass and pending MRI. (Large area of edema in the posterior left parietal lobe suspicious for brain) neoplasm Dictated By:Jayson Acevedo MD Signed By: 10/04/24 6972 Please see nurses notes for all additional meds given but the patient was given 500 mg of thiamine and 1 g of folic acid. Given the history, physical exam, and review of laboratory and imaging studies the patient is determined to be unsafe for discharge and requires higher level of care. For this reason the patient is being transferred to [facility] for further diagnostic tests, treatments, stabilization, and monitored response to therapy. I communicated the history, physical exam, pertinent laboratory and imaging studies to the accepting physician. Electronic copies of all emergency department laboratory testing and imaging studies as well as medications ordered and administered are being sent with the patient. Patient is Stable for Transfer. Reason: Neurology evaluation r/o Wiernicke's encephalopathy, abnormal CT scan Services needed: MRI. Risks Benefits have been explained-patient accepts transfer.
[2024-10-05] MEDS: ACETAMINOPHEN IVPB 1,000 MG/100 ML VIAL 250 MG IV (06:47)
--- NOTE | 2024-10-05 10:42 | PC.CM ---
Addendum entered by Lola Paul RN 10/05/24 12:18: Patient has been accepted by [facility] ED with Dr. Abad. The number to call and give report is [phone]. Packet completed along with CD. I will set up transport once I have Dr. Toribio sign all the paperwork. Original Note: 1035 I faxed over information to [facility] and initiated a transfer. I spoke to Amina at the transfer center and she states she will review the paperwork and get back to me. 1019 I received a referral to transfer patient for neurosurgery for edema on CT scan of the brain. Patient has large area edema in posterior left parietal lobe suspicious for brain neoplast.
[2024-10-05] MEDS: MORPHINE SULF INJ 10 MG/ML VIAL 4 MG IVP (12:27)
[2024-10-05] MEDS: ONDANSETRON INJ 2 MG/ML INJ 2 ML 4 MG IV (12:27)
--- NOTE | 2024-10-05 12:56 | PC.NURSE ---
Called Trudy and gave report, i also gave report to SAMARA Rollins.
== END 2024-10-05 13:10 | disposition short-term general hospital (02) ==
PROVIDERS: Emergency Medicine; Physician Assistant; Emergency Provider Emergency Medicine
DX: E51.2 Wernicke's encephalopathy (principal); F10.90 Alcohol use, unspecified, uncomplicated
CPT/HCPCS: 36415; 70450; 71045; 80053; 80307; 80320; 81001; 82140; 83735; 84443; 84484; 85025; 85610; 85730; 87400; 87811; 93005; 96361; 96365; 96375; 96376; 99284; J0131; J1200; J1885; J2060; J2270; J2405; J2765; J3411; J3490; J7030; G0480